=== PATIENT | female | born 1970 | race Caucasian/White ===

== ENCOUNTER 2018-08-06 15:47 | Observation (INO) ==
[2018-08-06] MEDS ORDERED: ASPIRIN 81 MG CHEWTAB ONE (16:01)
[2018-08-06] MEDS ORDERED: ASPIRIN 81 MG CHEWTAB PO ONE (16:01)
[2018-08-06] MEDS: NITROSTAT SL PRN ×3 (16:12→18:28)
[2018-08-06 16:15] LABS: BASOPHILS # (AUTO) 0.1 X10^3/uL (0.0-0.1); BASOPHILS % (AUTO) 1.2 % (0.2-1.0); EOSINOPHILS # (AUTO) 0.5 x10^3/uL (0.0-0.2); EOSINOPHILS % (AUTO) 4.1 % (0.9-2.9); HEMATOCRIT 44.2 % (36.0-47.0); HEMOGLOBIN 14.8 g/dL (12.0-16.0); MEAN CORPUSCULAR HGB CONC 33.6 g/dL (33.0-35.0); MEAN CORPUSCULAR VOLUME 86.3 fL (80.0-100.0); MEAN PLATELET VOLUME 8.3 fL (7.4-11.0); MONOCYTES # (AUTO) 0.9 x10^3/uL (0.3-0.8); MONOCYTES % (AUTO) 7.8 % (0.0-13.0); NEUTROPHILS % (AUTO) 60.9 % (42.0-75.0); PLATELET COUNT 289 X10^3/uL (150.0-450.0); RED BLOOD COUNT 5.12 X10^6/uL (3.5-5.4); RED CELL DISTRIBUTION WIDTH 13.2 % (11.6-16.5); WHITE BLOOD COUNT 11.5 X10^3/uL (3.6-10.0)
--- NOTE | 2018-08-06 16:21 | RAD ---
STUDY: CHEST, ONE VIEW History: Chest pain. Comparison: None. Findings: The trachea is midline. The lungs are clear of consolidation, significant infiltrate, effusion, or pneumothorax. The cardiac silhouette, mediastinum and osseous structures are unremarkable. IMPRESSION: 1. No evidence of acute cardiopulmonary abnormality. Reported By:
[2018-08-06 16:32] LABS: BLOOD UREA NITROGEN 16 mg/dL (7-18); CALCIUM 9.3 mg/dL (8.5-10.1); CARBON DIOXIDE 27.4 mmol/L (21-32); CHLORIDE 101 mmol/L (98-107); COR NA(FOR HYPERGLY) 138 mmol/L (136-145); CREATININE 1.02 mg/dL (0.55-1.02); SODIUM 137 mmol/L (136-145); TROPONIN I < 0.02 ng/mL (0-1.5); eGFR NON BLACK RACES > 60 (>60)
[2018-08-06 16:37] LABS: ALANINE AMINOTRANSFERASE 39 Units/L (12-78); ALBUMIN 3.5 g/dL (3.4-5.0); ALKALINE PHOSPHATASE 94 Units/L (46-116); ASPARTATE AMINO TRANSFERASE 23 Units/L (15-37); CKMB % 0.7 % (<4); CREATINE KINASE 264 Units/L (26-192); CREATINE KINASE MB 1.9 ng/mL (0-4.0); TOTAL PROTEIN 7.7 g/dL (6.4-8.2)
--- NOTE | 2018-08-06 17:42 | DR.CP ---
HPI Time Seen Time Seen by Provider: 08/06/18 16:25 PCP Primary Care Physician: ADELAIDE Complaint Chief Complaint Doctor Comments: Patient admits to intermittent subxiphoid pain x 4 days. This has been ongoing for two years intermittently. She has been evaluated by a test engineer in the past but felt no need to work up. She thinks this might be due to nerves; today she lost something and got upset and shortly thereafter her chest pain started. She took zantac and got no relief. There is no family history of heart disease. She denies cigarettes and alcohol. Chief Complaint:: PT. C/O INTERMITTENT CHEST PAIN THAT BEGAN THIS MORNING. PT. DESCRIBES THE PAIN SHARP AND TIGHT IN NATURE. PT. ALSO C/O FATIGUE. Source History Provided: Patient Mode of Arrival Mode of Arrival: Ambulatory Timing Onset of Chief Complaint: 08/06/18 PMH PMH Past Medical History: Yes Past Medical History: Hypertension Past Surgical History: Yes Surgical History: Family History History of Family Medical Conditions: Yes Family Medical History: Diabetes Mellitus, Coronary Artery Disease and Hypertension Social History Does patient currently use any type of tobacco product: No Have you used tobacco products in the last 12 months: No Type of Tobacco Use: None Does any household member use tobacco: No Alcohol Use: None Do you use any recreational Drugs:: No Lives With: Spouse Lives Where: Home infectious screening In the last 2 months have you had wt loss of >10#?: NO Have you had fever, night sweats or hemotysis?: No Have you traveled outside the country in the last 6 months?: No Isolation: Standard PE Vitals Vitals: Temperature 98 F Pulse Rate [Apical] 77 Pulse Rate 94 Respiratory Rate 18 Blood Pressure [Left Arm] 190/110 Blood Pressure [Right Arm] 166/102 Blood Pressure 177/113 O2 Sat by Pulse Oximetry 96 General Limitations: No Limitations and Language Barrier General Appearance: Alert and In No Apparent Distress Head Head Exam: Normal Inspection, Atraumatic and Normocephalic Eyes Eye exam: Normal Appearance, PERRL and EOMI ENT ENT Exam: Normal Exam, Normal Oropharynx and Normal External Ear Exam Chest Chest Inspection: Normal Inspection and Symmetric Chest Wall Rise Respiratory Respiratory Exam: Normal Lung Sounds Bilat and Accessory Muscle Use Respiratory Exam: Bilateral: Clear to Auscultation Cardiovascular Cardiovascular Exam: Regular Rate and Normal Rhythm Pulse: Normal Edema: Normal Abdominal Exam Abdominal Exam: Normal Inspection, Normal Bowel Sounds and Soft Extremities Extremities Exam: Normal Inspection and Full ROM Back Back Exam: Normal Inspection and Full ROM Neurologic Neurological Exam: Alert, Oriented X3 and CN II-XII Intact Psychiatric Psychiatric Exam: Normal Affect and Normal Mood Skin Skin Exam: Warm, Dry and Intact COURSE Treatment Treatment: Morphine IV Reevaluation 1st: Improved Consultation Called: 17:15 Consultation Comments: Patient was authorized for admission by charge nurse ROR Labs Reviewed Laboratory Results Reviewed?: Yes Result Diagrams: 08/06/18 16:08 08/06/18 16:08 Laboratory: WBC 11.5 X10^3/uL (3.6-10.0) H 08/06/18 16:08 RBC 5.12 X10^6/uL (3.5-5.4) 08/06/18 16:08 Hgb 14.8 g/dL (12.0-16.0) 08/06/18 16:08 Hct 44.2 % (36.0-47.0) 08/06/18 16:08 MCV 86.3 fL (80.0-100.0) 08/06/18 16:08 MCH 29.0 pg (27.0-34.0) 08/06/18 16:08 MCHC 33.6 g/dL (33.0-35.0) 08/06/18 16:08 RDW 13.2 % (11.6-16.5) 08/06/18 16:08 Plt Count 289 X10^3/uL (150.0-450.0) 08/06/18 16:08 MPV 8.3 fL (7.4-11.0) 08/06/18 16:08 Neut % (Auto) 60.9 % (42.0-75.0) 08/06/18 16:08 Lymph % (Auto) 26.0 % (21.0-51.0) 08/06/18 16:08 [place] % (Auto) 7.8 % (0.0-13.0) 08/06/18 16:08 Eos % (Auto) 4.1 % (0.9-2.9) H 08/06/18 16:08 Baso % (Auto) 1.2 % (0.2-1.0) H 08/06/18 16:08 Neut # (Auto) 7.0 x10^3/uL (2.2-4.8) H 08/06/18 16:08 Lymph # (Auto) 3.0 X10^3/uL (1.3-2.9) H 08/06/18 16:08 [place] # (Auto) 0.9 x10^3/uL (0.3-0.8) H 08/06/18 16:08 Eos # (Auto) 0.5 x10^3/uL (0.0-0.2) H 08/06/18 16:08 Baso # (Auto) 0.1 X10^3/uL (0.0-0.1) 08/06/18 16:08 Absolute Nucleated RBC 0.1 /100WBC 08/06/18 16:08 INR Target Range - 08/06/18 16:08 INR 0.91 (0.8-1.3) 08/06/18 16:08 APTT 27.5 SECONDS (22.9-36.5) 08/06/18 16:08 PTT Comment - 08/06/18 16:08 Sodium 137 mmol/L (136-145) 08/06/18 16:08 Corrected Sodium 138 mmol/L (136-145) 08/06/18 16:08 Potassium 3.5 mmol/L (3.5-5.1) 08/06/18 16:08 Chloride 101 mmol/L (98-107) 08/06/18 16:08 Carbon Dioxide 27.4 mmol/L (21-32) 08/06/18 16:08 BUN 16 mg/dL (7-18) 08/06/18 16:08 Creatinine 1.02 mg/dL (0.55-1.02) 08/06/18 16:08 Est GFR (MDRD) Af Amer > 60 (>60) 08/06/18 16:08 Est GFR (MDRD) Non-Af > 60 (>60) 08/06/18 16:08 Glucose 148 mg/dL (65-99) H 08/06/18 16:08 Calcium 9.3 mg/dL (8.5-10.1) 08/06/18 16:08 Corrected Calcium TNP 08/06/18 16:08 Magnesium 1.9 mg/dL (1.7-2.9) 08/06/18 16:08 Total Bilirubin 0.30 mg/dL (0.2-1.0) 08/06/18 16:08 AST 23 Units/L (15-37) 08/06/18 16:08 ALT 39 Units/L (12-78) 08/06/18 16:08 Alkaline Phosphatase 94 Units/L (46-116) 08/06/18 16:08 Creatine Kinase 234 Units/L (26-192) H 08/06/18 22:02 CK-MB (CK-2) 1.6 ng/mL (0-4.0) 08/06/18 22:02 CK/CKMB % Calc 0.7 % (<4) 08/06/18 22:02 Troponin I < 0.02 ng/mL (0-1.5) 08/06/18 22:02 Total Protein 7.7 g/dL (6.4-8.2) 08/06/18 16:08 Albumin 3.5 g/dL (3.4-5.0) 08/06/18 16:08 Globulin 4.2 g/dL (2.5-4.5) 08/06/18 16:08 Albumin/Globulin Ratio 0.8 Ratio (1.1-2.1) L 08/06/18 16:08 XRAY XRAY Interpreted by: Radiologist XRAY Findings: No evidence of cardiopulmonary disease. Diagnosis Discharge Problem: Chest pain, rule out acute myocardial infarction
[2018-08-06 18:22] VITALS: BMI 42.2
[2018-08-06] MEDS ORDERED: KLOR-CON PO PRN (18:40)
[2018-08-06] MEDS ORDERED: POTASSIUM CHLORIDE LIQ 20 MEQ UDC PO PRN (18:40)
[2018-08-06] MEDS ORDERED: K-RIDER 10 MEQ/NS 100 ML 10 MEQ/100 ML BAG IV PRN (18:40)
[2018-08-06] MEDS ORDERED: MICRO K EXTEN CAP 10 MEQ PO PRN (18:40)
[2018-08-06] MEDS ORDERED: POTASSIUM CHL 60 MEQ/NS 0.45% 500 ML IV PRN (18:40)
[2018-08-06] MEDS ORDERED: MAGNESIUM SULFATE 1 GRAM/100 mL PREMIX 1 GM/100 ML BAG IV PRN (18:40)
[2018-08-06] MEDS ORDERED: POTASSIUM CHL 40 MEQ/NS 0.45% 500 ML IV PRN (18:40)
[2018-08-06] MEDS ORDERED: MAALOX or MYLANTA PO PRN (19:50)
[2018-08-06] MEDS: K-DUR TAB 20 MEQ PO PRN (20:18)
[2018-08-06] MEDS ORDERED: TYLENOL 325 MG TAB PO PRN (21:51)
[2018-08-06] MEDS ORDERED: ULTRAM PO PRN (21:51)
[2018-08-06 22:32] LABS: CKMB % 0.7 % (<4); CREATINE KINASE 234 Units/L (26-192); CREATINE KINASE MB 1.6 ng/mL (0-4.0); TROPONIN I < 0.02 ng/mL (0-1.5)
[2018-08-06] MEDS ORDERED: CATAPRES TAB 0.1 MG PO PRN (23:40)
[2018-08-06] MEDS ORDERED: CATAPRES TAB 0.1 MG ONE (23:45)
[2018-08-07 05:20] LABS: BASOPHILS # (AUTO) 0.1 X10^3/uL (0.0-0.1); BASOPHILS % (AUTO) 0.5 % (0.2-1.0); EOSINOPHILS # (AUTO) 0.5 x10^3/uL (0.0-0.2); EOSINOPHILS % (AUTO) 4.5 % (0.9-2.9); HEMATOCRIT 41.1 % (36.0-47.0); HEMOGLOBIN 13.9 g/dL (12.0-16.0); LYMPHOCYTES # (AUTO) 3.3 X10^3/uL (1.3-2.9); LYMPHOCYTES % (AUTO) 31.4 % (21.0-51.0); MEAN CORPUSCULAR HEMOGLOBIN 29.3 pg (27.0-34.0); MEAN CORPUSCULAR HGB CONC 33.8 g/dL (33.0-35.0); MEAN CORPUSCULAR VOLUME 86.8 fL (80.0-100.0); MEAN PLATELET VOLUME 8.5 fL (7.4-11.0); MONOCYTES # (AUTO) 0.9 x10^3/uL (0.3-0.8); MONOCYTES % (AUTO) 8.5 % (0.0-13.0); NEUTROPHILS # (AUTO) 5.8 x10^3/uL (2.2-4.8); NEUTROPHILS % (AUTO) 55.1 % (42.0-75.0); PLATELET COUNT 267 X10^3/uL (150.0-450.0); RED BLOOD COUNT 4.74 X10^6/uL (3.5-5.4); RED CELL DISTRIBUTION WIDTH 13.3 % (11.6-16.5); WHITE BLOOD COUNT 10.5 X10^3/uL (3.6-10.0)
[2018-08-07 07:48] LABS: ALANINE AMINOTRANSFERASE 33 Units/L (12-78); ALBUMIN 3.1 g/dL (3.4-5.0); ALKALINE PHOSPHATASE 84 Units/L (46-116); ASPARTATE AMINO TRANSFERASE 25 Units/L (15-37); BLOOD UREA NITROGEN 16 mg/dL (7-18); CARBON DIOXIDE 26.7 mmol/L (21-32); CHLORIDE 102 mmol/L (98-107); CHOL/HDL RATIO 4.6 (0.0-5.0); CHOLESTEROL 172 mg/dL (0-200); CKMB % 0.6 % (<4); COR NA(FOR HYPERGLY) 142 mmol/L (136-145); CREATINE KINASE 206 Units/L (26-192); CREATINE KINASE MB 1.3 ng/mL (0-4.0); CREATININE 0.99 mg/dL (0.55-1.02); HDL CHOLESTEROL 37 mg/dL (40-60); SODIUM 141 mmol/L (136-145); TRIGLYCERIDES 132 mg/dL (0-150); TROPONIN I < 0.02 ng/mL (0-1.5); eGFR NON BLACK RACES > 60 (>60)
[2018-08-07 07:54] LABS: CALCIUM 9.3 mg/dL (8.5-10.1)
[2018-08-07] MEDS: K-DUR TAB 20 MEQ PO PRN (08:41)
[2018-08-07] MEDS ORDERED: PATIENT'S HOME MEDICATION (Losartan-Hydrochlorothiazide [Losartan-Hydrochlorothiazide] 1 T PO SCH (09:00)
[2018-08-07] MEDS ORDERED: HYZAAR 50/12.5 MG PO SCH (09:00)
[2018-08-07] MEDS ORDERED: MAG-OX TAB PO NR (11:00)
[2018-08-07 11:08] LABS: CKMB % 0.8 % (<4); CREATINE KINASE 201 Units/L (26-192); CREATINE KINASE MB 1.6 ng/mL (0-4.0); TROPONIN I < 0.02 ng/mL (0-1.5)
[2018-08-07] MEDS ORDERED: VISTARIL PO PRN (12:15)
[2018-08-07 12:16] VITALS: BP 164/98
[2018-08-07] MEDS ORDERED: VISTARIL PO ONE (12:17)
== END 2018-08-07 12:20 | disposition home or self-care (01) ==
LOC: ER 15:48 → MED/SURG 15:48
PROVIDERS: ADMIT Internal Medicine; ATTEND Internal Medicine
DX: R07.89 Other chest pain; R94.31 Abnormal electrocardiogram [ECG] [EKG]
CPT/HCPCS: 36415; 71010; 71045; 80053; 80061; 82550; 82553; 83036; 83735; 84484; 85025; 85610; 85730; 93005; 94760; 99284; A4216; A4222; Q0177; G0378; J3490